=== PATIENT | female | born 1990 | race Two or more races ===

== ENCOUNTER 2019-03-31 08:14 | Outpatient (CLI) | payer OTHER | END 2019-03-31 08:17 | disposition home or self-care (01) | LOC: SONOGRAMA 08:14 | DX: E04.1 Nontoxic single thyroid nodule (principal); D44.0 Neoplasm of uncertain behavior of thyroid gland ==

== ENCOUNTER 2021-08-23 13:34 | Inpatient (IN) | payer OTHER ==
[~2021-08-23] VITALS: Ht 160 cm; Wt 89.8 kg
[2021-08-23] MEDS ORDERED: SYNTHROID175 MCG PO (14:12)
[2021-08-23] MEDS ORDERED: PREDNISONE10 M2 PO (14:12)
[2021-08-23] MEDS ORDERED: FOLIC ACID1 MG PO (14:13)
[2021-08-23] MEDS ORDERED: TOUJEO MAX300 UNIT/1 SQ (14:13)
[2021-08-23] MEDS ORDERED: METHOTREXATE2.5 MG PO (14:13)
[2021-08-23] MEDS ORDERED: HUMALOG KW100 UNIT/1 SQ (14:13)
[2021-08-23] MEDS ORDERED: FLONASE16 GM NS (14:13)
[2021-08-23] MEDS ORDERED: FAMOTIDINE40 MG PO (14:14)
[2021-08-23] MEDS ORDERED: TRAM1TAB98 PO (14:15)
--- NOTE | 2021-08-23 14:20 | NUR ---
SE RECIBE PTE ALERTA Y ORIETNADA X3 CUAL VIENE REFERIDA POR DRA.YAIZA DIAZ PARA EVALUACION POR DOLOR EPIGASTRICO DESDE EL MIERCOLES PASADO. SE JEAN S/V Y SE UBICA.
--- NOTE | 2021-08-23 16:09 | NUR ---
SE REALIZA ADMIISTRACION DE MEDICAMENTOS POR ORDEN MEDICA, SE ORIENTA A PACIENTE SOBRE LAS ORDENES MEDICAS, Y REALIZA MUESTRAS DE JUANA. PACIENTE EN ESPERA DE REALIZAR. CT.
--- NOTE | 2021-08-23 19:08 | NUR ---
PACIENTE EN ESPERA DE ADITYA CONSTRASTE .
== END 2021-08-24 08:25 | disposition left against medical advice (07) | DRG 392 ==
LOC: ER 13:34 → MEDI 23:06
PROVIDERS: ADMIT Internal Medicine; ATTEND Internal Medicine
PROC: BW21Y0Z Computerized Tomography (CT Scan) of Abdomen and Pelvis using Other Contrast, Unenhanced and Enhanced (ICD-10-PCS; principal; 2021-08-23)
DX: R10.9 Unspecified abdominal pain (principal); Z20.822 Contact with and (suspected) exposure to COVID-19